=== PATIENT | male | born 1960 | race Caucasian/White ===

== ENCOUNTER 2022-04-25 14:34 | Emergency (ER) | payer BC ==
[~2022-04-25] VITALS: Ht 175.3 cm; Wt 68.0 kg
[2022-04-25] MEDS ORDERED: SODIUM CHLORIDE 0.9% 1000ML 1,000 ML IV ONE (15:00)
[2022-04-25 15:23] LABS: BASOPHILS # (AUTO) 0.1 (0.0-0.1); BASOPHILS % 0.7 % (0.0-1.0); EOSINOPHILS # (AUTO) 0.4 (0.0-0.4); EOSINOPHILS % 4.1 % (0.0-6.0); HEMATOCRIT 34.4 % (38.2-49.6); HEMOGLOBIN 11.2 g/dL (14.0-18.0); LYMPHOCYTES # (AUTO) 2.1 (1.0-3.2); MEAN CORPUSCULAR HEMOGLOBIN 28.2 pg (28-32); MEAN CORPUSCULAR HGB CONC 32.6 g/dL (31-35); MEAN CORPUSCULAR VOLUME 86.6 fL (81-99); MONOCYTES # (AUTO) 0.6 (0.2-0.8); MONOCYTES % 7.2 % (4.4-11.3); NEUTROPHILS # (AUTO) 5.4 (2.1-6.9); NEUTROPHILS % 62.6 % (38.7-80.0); PLATELET COUNT 363 x10e3/uL (140-360); RED BLOOD COUNT 3.97 x10e6/uL (4.3-5.7); RED CELL DISTRIBUTION WIDTH 15.6 % (11.7-14.4)
[2022-04-25 15:44] LABS: ALBUMIN 2.5 g/dL (3.5-5.0); ALBUMIN/GLOBULIN RATIO 0.5 (0.8-2.0); ANION GAP 16.4 mmol/L (8-16); CALCIUM 8.7 mg/dL (8.4-10.2); CREATININE, SERUM 3.75 mg/dL (0.72-1.25); POTASSIUM 4.4 mmol/L (3.5-5.1)
[2022-04-25 15:51] LABS: CLARITY,URINE TURBID (CLEAR); COLOR,URINE STRAW (YELLOW)
[2022-04-25 15:52] LABS: LEUKOCYTE ESTERASE ,URINE LARGE (NEGATIVE); NITRITE,URINE NEGATIVE (NEGATIVE); URINE UROBILINOGEN 0.2 mg/dL (0.2 - 1)
[2022-04-25 15:53] LABS: PROTEIN,URINE DIPSTICK 3+ (NEGATIVE)
[2022-04-25 15:54] LABS: KETONES,URINE NEGATIVE (NEGATIVE)
[2022-04-25 15:57] LABS: RBC,URINE 0-5 /HPF (0-5)
[2022-04-25 15:58] LABS: AMORPHOUS SEDIMENT,URINE MODERATE (FEW); BACTERIA,URINE MODERATE /HPF
[2022-04-25] MEDS ORDERED: CEFUROXIME250 MG PO (16:18)
[2022-04-25] MEDS ORDERED: CEFTRIAXONE 1 GM VIAL IV ONE (16:30)
[2022-04-25 20:57] VITALS: BP 123/68
== END 2022-04-25 20:43 | disposition home or self-care (01) ==
LOC: ER 14:45
DX: R41.82 Altered mental status, unspecified (principal); N39.0 Urinary tract infection, site not specified; I12.0 Hypertensive chronic kidney disease with stage 5 chronic kidney disease or end stage renal disease; N18.6 End stage renal disease; Z99.2 Dependence on renal dialysis; Z86.16 Personal history of COVID-19; Z93.1 Gastrostomy status
CPT/HCPCS: 36415; 51700; 70450; 71045; 80053; 81001; 83605; 84484; 85025; 87040; 93005; 99284; J0696; J7030